=== PATIENT | male | born 1965 | race Caucasian/White ===

== ENCOUNTER 2022-04-27 12:01 | Emergency (ER) | payer SELFPAY | END 2022-04-27 14:21 | LOC: ERS 12:01 | DX: M79.642 Pain in left hand (principal); F17.220 Nicotine dependence, chewing tobacco, uncomplicated ==

== ENCOUNTER 2022-04-28 22:43 | Emergency (ER) | payer SELFPAY | END 2022-04-28 23:50 | disposition home or self-care (01) | LOC: ERS 22:43 | DX: F10.90 Alcohol use, unspecified, uncomplicated (principal); F17.220 Nicotine dependence, chewing tobacco, uncomplicated | CPT/HCPCS: 99283 ==